=== PATIENT | male | born 1985 | race Hispanic/Latino ===

== ENCOUNTER 2016-09-15 18:24 | Inpatient (IN) | payer SELFPAY ==
[~2016-09-15] VITALS: Ht 167.6 cm; Wt 65.0 kg
[~2016-09-15 18:24] MED LIST: ONDANSETRON4 MG PO; PREVACID30 M2 PO
[2016-09-15 19:38] LABS: HEMATOCRIT 41.4 % (39.0-50.0); IMMATURE GRANULOCYTES 0.4 % (0.0-1.0); MEAN CORPUSCULAR HGB 30.4 pG CALC (26.0-32.0); MEAN CORPUSCULAR HGB CONC 33.8 g/L CALC (32.0-36.0); NEUT# 11.59 thou/uL (1.82-7.42); RED BLOOD COUNT 4.6 mill/uL (4.70-6.10); RED CELL DISTRI WIDTH 14.8 % (11.5-15.5)
[2016-09-15 19:55] LABS: URINE BILIRUBIN - DIPSTICK NEGATIVE (NEGATIVE); URINE BLOOD DIPSTICK NEGATIVE (NEGATIVE); URINE CLARITY CLEAR; URINE COLOR YELLOW; URINE GLUCOSE - DIPSTICK NEGATIVE (NEGATIVE); URINE KETONE NEGATIVE (NEGATIVE); URINE LEUK ESTERASE NEGATIVE (NEGATIVE); URINE NITRITE - DIPSTICK NEGATIVE (Negative); URINE PROTEIN - DIPSTICK NEGATIVE (NEG-TRACE); URINE SPECIFIC GRAVITY <=1.005; URINE UROBILINOGEN - DIPSTICK 0.2 E.U./dL (0.2)
[2016-09-15 19:58] LABS: BARBITURATES NEGATIVE (NEGATIVE); COCAINE POSITIVE (NEGATIVE); METHADONE NEGATIVE (NEGATIVE); OXCYCODONE NEGATIVE (NEGATIVE); TETRAHYDROCANNABIONOL NEGATIVE (NEGATIVE); TRICYLIC ANTIDEPRESSANTS NEGATIVE (NEGATIVE)
[2016-09-15 20:03] LABS: ALBUMIN 3.9 g/dL (3.2-5.0); ALKALINE PHOSPHATASE 121 u/l (38-126); ANION GAP 23 (6-22 (CALC)); BILIRUBIN, TOTAL 0.5 mg/dL (0.0-1.4); BUN 10 mg/dL (9-20); BUN/CREATININE RATIO 12 (12-20 (CALC)); CALCIUM 7.1 mg/dL (8.4-10.2); CARBON DIOXIDE 21 mmol/l (22-30); CHLORIDE 110 mmol/l (95-108); CREATININE 0.8 mg/dL (0.7-1.3); GFR > 60 ML/MIN (>=60 (CALC)); GFR FOR AFR.AMER. > 60 ML/MIN (>=60 (CALC)); GLUCOSE 94 mg/dL (75-110); SGOT/AST 41 u/l (17-59); SGPT/ALT 29 u/l (21-72); SODIUM 150 mmol/l (137-146); TOTAL PROTEIN 7.6 g/dL (6.3-8.2)
[2016-09-15 20:12] LABS: MYOGLOBIN 24 ng/mL (0 - 121)
[2016-09-15 20:15] LABS: ETHYL ALCOHOL 530 mg/dl (0-30)
[2016-09-15 22:30] VITALS: BP 96/67
[2016-09-15 22:45] VITALS: BP 103/59
[2016-09-15 23:00] VITALS: BP 104/56
[2016-09-15 23:15] VITALS: BP 102/59
[2016-09-15 23:30] VITALS: BP 102/59
[2016-09-15 23:45] VITALS: BP 99/77
[2016-09-16] VITALS (13 sets, daily range): BP systolic 90–124; BP diastolic 47–76
[2016-09-16 04:51] LABS: HEMOGLOBIN 13.9 g/dl (14.0-18.0); MEAN CELL VOLUME 89.5 fL CALC (80.0-100.0); MEAN CORPUSCULAR HGB 30.3 pG CALC (26.0-32.0); MEAN CORPUSCULAR HGB CONC 33.9 g/L CALC (32.0-36.0); RED BLOOD COUNT 4.58 mill/uL (4.70-6.10); RED CELL DISTRI WIDTH 14.9 % (11.5-15.5)
[2016-09-16 05:20] LABS: ALBUMIN 4.1 g/dL (3.2-5.0); MAGNESIUM 1.5 mg/dL (1.6-2.3)
[2016-09-16 05:35] LABS: ANION GAP 26 (6-22 (CALC)); BUN 9 mg/dL (9-20); BUN/CREATININE RATIO 12 (12-20 (CALC)); CALCIUM 8.1 mg/dL (8.4-10.2); CARBON DIOXIDE 18 mmol/l (22-30); CHLORIDE 107 mmol/l (95-108); CREATININE 0.7 mg/dL (0.7-1.3); GFR > 60 ML/MIN (>=60 (CALC)); GFR FOR AFR.AMER. > 60 ML/MIN (>=60 (CALC)); GLUCOSE 72 mg/dL (75-110); POTASSIUM 4.1 mmol/l (3.5-5.1); SODIUM 146 mmol/l (137-146)
[2016-09-16] MEDS ORDERED: AUGMENTIN875TAB PO (11:06)
== END 2016-09-16 12:30 | disposition home or self-care (01) | DRG 918 ==
LOC: ENPENDDIS → ED 18:24 → ED-I 21:26 → ED 21:33 → ICU 21:34
PROVIDERS: Emergency Medicine; ADMIT Internal Medicine; ATTEND Internal Medicine
DX: T51.0X1A Toxic effect of ethanol, accidental (unintentional), initial encounter (principal); T17.508A Unspecified foreign body in bronchus causing other injury, initial encounter; E87.0 Hyperosmolality and hypernatremia; E83.42 Hypomagnesemia; F10.129 Alcohol abuse with intoxication, unspecified; F17.210 Nicotine dependence, cigarettes, uncomplicated; E83.51 Hypocalcemia; F12.90 Cannabis use, unspecified, uncomplicated; Y92.007 Garden or yard of unspecified non-institutional (private) residence as the place of occurrence of the external cause
CPT/HCPCS: Q9967